=== PATIENT | male | born 1980 | race Caucasian/White ===

== ENCOUNTER 2016-11-05 17:39 | Emergency (ER) | payer OTHER ==
[~2016-11-05] VITALS: Ht 180.3 cm; Wt 108.9 kg
[2016-11-05] MEDS ORDERED: METHADONE 10MG10 MG PO (17:53)
--- OUTSIDE RECORDS SUMMARY | 2016-11-05 18:00 | External Medical Summary Rpt ---
Demographics Preferred Language Serbian Marital Status Unknown Rastafari Affiliation Unknown Race Unknown Ethnic Group Unknown Author Author , VIVIAN AVILA Address Unknown Phone Immunization Unable to retrieve immunization data due to connection failure with Immunization Registry. Please try again later.
--- OUTSIDE RECORDS SUMMARY | 2016-11-05 18:00 | External Medical Summary Rpt ---
Author Author MARGARITA Oconnell, MARGARITA Oconnell Organization [employer] Address Unknown Phone Unavailable
--- OUTSIDE RECORDS SUMMARY | 2016-11-05 18:00 | External Medical Summary Rpt ---
Author Author [employer] Organization [employer] Address Unknown Phone Unavailable Purpose Continuity of Care Document - through 2016
--- OUTSIDE RECORDS SUMMARY | 2016-11-05 18:00 | External Medical Summary Rpt ---
Author Author VIVIAN Address Unknown Phone [email or web address] Purpose Continuity of Care Document - through 2016
--- OUTSIDE RECORDS SUMMARY | 2016-11-05 18:00 | External Medical Summary Rpt ---
Demographics Preferred Language Indonesian Marital Status Unknown Lutheran Affiliation Unknown Race Unknown Ethnic Group Unknown Author Author , VIVIAN AVILA Address Unknown Phone Immunization Unable to retrieve immunization data due to connection failure with Immunization Registry. Please try again later.
--- OUTSIDE RECORDS SUMMARY | 2016-11-05 18:00 | External Medical Summary Rpt ---
Author Author VIVIAN Address Unknown Phone Purpose Continuity of Care Document - through 2016
--- NOTE | 2016-11-05 18:28 | Urgent Treatment Center Report ---
History of Present Issue Date/Time Seen by Provider 11/05/161820 Visit Reason Pt arrived:Walked Presenting Problem:ABDOMINAL PAIN THAT STARTED ON THURSDAY, PT STATES HIS STOOL HAS GOTTEN DARKER OF THE LAST 2 DAYS, WITH 1 EPISODE OF VOMITING. Location if Accident: Onset of symptoms date/time:/ or onset unknown for:MEDICAL HX UNKNOWN Have you (or family members/close friends) recently traveled outside the [facility]? N If Yes, where/when: Have you had exposure to infectious disease within the past month? TB? Other? Specify: Here w/ significant other c/o abdominal pain, black diarrhea and vomiting. Started w/ diarrhea Thursday evening. Dark black, "not brown, this is black". Blood noticed at times w/ wiping. 6-10 episodes of diarrhea since onset accompanied with intermittent stabbing pains across lower abdomen. Worse before BMs, slightly improved after BM. BMs worse if pt eats/drinks. Slightly decreased appetite but eating less "because it goes right through me". Hasn't taken or tried anything for symptoms. Denies pepto or anything similiar. Vomited today. Once. Partially digested food. No blood of coffee ground appearance. Denies fevers, aches, chills. Hx of constipation due to chronic methadone use. Typical BM pattern once weekly. Source patient, family Exam Limitations no limitations ALLERGIES Coded Allergies: No Known Allergies (11/05/16) Home Medications Reported Medications Methadone Hcl (Methadone) 55 MG PO DAILY History Medical History General CAD? No Angina: No [place]: No Hypertension? No Hyperlipidemia? No CHF? No DVT? No PE? No COPD? No Asthma? No Anemia? No GERD? No Gastric ulcers? No GI Bleed? No Hernia? No Thyroid Problems? No Hypothyroidism? No CVA? No Seizures? No Diabetes? No Renal Insuffiency? No UTI? No Stones? No BPH? No GB Disease: No Nephritic Syndrome? No Asplenia? No Hepatitis? No Sickle Cell Disease? No Arthritis? No Migraines? No Cataracts? No Glaucoma? No MRSA? No HIV? No TB? No Anxiety? No Depression? No Cancer? No Site: N More? Yes Additional hx: HEP C Immunization HX DT/Tetanus 1-4 Years Ago Surgical Hx Previous Surgery?Y GALLBLADDER Social History Smoking Hx Smoker: Current Every Day Smoker Tobacco: Yes Type N/A Packs/day N/A Alcohol Alcohol: No Review of Systems All Other Systems Reviewed and Negative Constitutional see HPI Respiratory denies shortness of breath Cardiovascular denies edema, denies palpitations Gastrointestinal see HPI Genitourinary denies: no symptoms reported. Skin denies change in color Physical Exam Vital Signs Vital Signs Date Time Temp Pulse Resp B/P Pulse O2 O2 Flow FiO2 Ox Delivery Rate 11/05 1749 98.1 102 20 114/87 97 General Appearance normal appearance, no apparent distress Ear, Nose, Throat normal pharynx Respiratory Status No: respiratory distress. Lung Sounds anterior: lungs clear. posterior: lungs clear. bilateral: lungs clear. Cardiovascular no peripheral edema, no murmur, tachycardia Gastrointestinal soft, no organomegaly, no pulsatile mass, abnormal bowel sounds (distant), no guarding, no rebound, tenderness (mild RLQ) Neurologic alert, oriented x 3 Mental status normal mood/affect Skin normal color, warm/dry Lymphatic no adenopathy Medical Decision Making LABS/Meds/Orders Pt receiving controlled substance in ED? No Departure Departure Time of Disposition 183 Disposition Still a Patient Clinical Impression Primary Impression: Black stools Secondary Impressions: Abdominal pain Qualifiers: Abdominal location: right lower quadrant Qualified Code: R10.31 - Right lower quadrant pain Condition STABLE Additional Instructions Discussed symptoms and [facility] guidelines. Pt is agreeable to transfer to ER for further evaluation. Report called to Miguel Angel at [phone]
--- NOTE | 2016-11-05 19:54 | Emergency Room Report ---
History of Present Illness Time Seen by 183Sotero Presenting Problem in Triage Pt arrived:Walked Presenting Problem:ABD PAIN, DIARRHEA BEGAN THURSDAY Onset of symptoms date/time:/ or onset unknown for:MEDICAL HX UNKNOWN Treatment Prior to Arrival: [employer]CH[employer]ICIAN Provided by: Sepsis Risk Assessment: Temp: 98.1 B/P: 114/87 MAP: 96 Pulse: 102 Resp: 20 Recent fever? N Clinical Suspician of Infection? N Mental Status: 1 - Regular (Normal Baseline) Sepsis Risk:Possible Sepsis Risk Have you (or family members/close friends) recently traveled outside the [place]? N If Yes, where/when: Have you had exposure to infectious disease within the past month? N TB? Other? Specify: Source patient, RN notes reviewed, family, RN/MD Exam Limitations no limitations Comment This is a 36-year-old male patient presented emergency room with abdominal discomfort, diarrhea, for the past 3 days. Patient's states patient's to have been dark, reason why he presented to the [facility] for examination. Patient denies any recent travel or exposure to sick contacts. Patient has been the methadone clinic for the past 3 years, due to previous drug abuse. ALLERGIES Coded Allergies: No Known Allergies (11/05/16) Home Medications Reported Medications Methadone Hcl (Methadone) 55 MG PO DAILY (Dorothy DAVILA,Tyler Hamilton) History Medical History General CAD? No Angina: No [place]: No Hypertension? No Hyperlipidemia? No CHF? No DVT? No PE? No COPD? No Asthma? No Anemia? No GERD? No Gastric ulcers? No GI Bleed? No Hernia? No Thyroid Problems? No Hypothyroidism? No CVA? No Seizures? No Diabetes? No Renal Insuffiency? No End Stage Renal Disease? No UTI? No Stones? No BPH? No GB Disease: No Nephritic Syndrome? No Asplenia? No Hepatitis? No Sickle Cell Disease? No Arthritis? No Migraines? No Cataracts? No Glaucoma? No MRSA? No HIV? No TB? No Anxiety? No Depression? No Cancer? No Site: N More? Yes Additional hx: HEP C Immunization Hx DT/Tetanus 1-4 Years Ago Surgical Hx Previous Surgery?Y GALLBLADDER Social History Smoking Hx Smoker: Former Smoker Tobacco: No Type Cigarettes Packs/day N/A Alcohol Alcohol: No (Tyler De La Cruz MD) Review of Systems All Other Systems Reviewed and Negative Gastrointestinal abdominal pain, diarrhea, denies nausea, denies vomiting (Tyler De La Cruz MD) Physical Exam Vital Signs Vital Signs Date Time Temp Pulse Resp B/P Pulse O2 O2 Flow FiO2 Ox Delivery Rate 11/06 2027 74 16 124/81 97 11/05 185 98.1 102 20 114/87 98 11/06 1851 98.1 102 20 114/87 97 11/05 1749 98.1 102 20 114/87 97 General Appearance normal appearance, WD/WN, no apparent distress Respiratory Status Yes: trachea midline, chest symmetrical, non tender chest. No: respiratory distress. Lung Sounds bilateral: normal breath sounds, lungs clear. Cardiovascular normal exam, regular rate/rhythm, no peripheral edema, no gallop, no JVD, no murmur, no rub, normal peripheral pulses Gastrointestinal normal bowel sounds, normal exam, non tender, soft, no organomegaly Extremities non-tender, normal range of motion, normal inspection Neurologic alert, purchase order checker II-XII nml as tested, normal exam, oriented x 3 Skin intact, normal color, warm/dry (Dorothy DAVILA,Tyler Hamilton) Medical Decision Making LABS/Meds/Orders Pt receiving controlled substance in ED? No Comment Patient signed out to Dr. Charity quintanilla at 8:00pm, pending labs. Results/Orders Laboratory Tests 11/05/162009: Opiates Screen NEGATIVE, Urine Methadone Screen POSITIVE H, Barbiturates NEGATIVE, Phencyclidine Screen NEGATIVE, Amphetamines Screen NEGATIVE, Benzodiazepines Screen NEGATIVE, Cocaine Screen NEGATIVE, Marijuana (THC) Screen NEGATIVE, Urine Color YELLOW, Urine Appearance CLEAR, Urine pH 6.5, Ur Specific [place] 1.025, Urine Protein NEGATIVE, Urine Ketones TRACE H, Urine Blood TRACE -LYSED, Urine Nitrate NEGATIVE, Urine Bilirubin NEGATIVE, Urine Urobilinogen 0.2 , Ur Leukocyte Esterase NEGATIVE, Urine WBC 3-5, Urine Bacteria 1+, Urine Mucus 2+, Urine Glucose NEGATIVE 11/05/161951: Sodium 138, Potassium 4.3, Chloride 101, Carbon Dioxide 29, BUN 10, Creatinine 1.1, Estimated Creat Clear 140, Estimated GFR (MDRD) 75, Glucose 124 H, Calcium 9.1, Total Bilirubin 0.4, AST 26, ALT 35, Alkaline Phosphatase 126 H, Total Protein 8.2, Albumin 3.8, Globulin 4.4 H, Albumin/Globulin Ratio 0.9 L, Amylase 41, Lipase 105, WBC 6.3, RBC 5.49, Hgb 14.9, Hct 44.9, MCV 81.9 L, RDW 13.4, Plt Count 239, MPV 6.9 L, Gran % 71.5, Gran # 4.5, Lymphocytes % 21.2, Monocytes % 4.0, Eosinophils % 2.9, Basophils % 0.4, Lymphocytes # 1.3, Monocytes # 0.3, Eosinophils # 0.2, Basophils # 0.0, PUBS MCHC 33.2, MCH 27.2 11/05/16 0600: Stool Occult Blood NEGATIVE Current Medication Orders Sig/Mekhi Start time Last Medication Dose Route Stop Time Status Admin Sodium Chloride 1,000 ML .Q1H1M 11/06 1999 DC IV 11/05 2099 Sodium Chloride 10 ML PRN PRN 11/06 1999 AC IV 11/06 1953 Sodium Chloride 10 ML PRN PRN 11/05 1929 AC IV 11/06 1928 Orders Procedure Date/time Status DIET-NOTHING BY MOUTH 11/06 B Active STOOL OCCULT BLOOD 11/05 2013 Complete DRUG ABUSE SCREEN (10) 11/05 1954 Complete DIARRHEA PANEL, PCR 11/[address] ABD & PELVIS W/O CONTRAST 11/[address] ABD/PELVIS REQ 11/05 1928 Complete IV SALINE LOCK 11/05 1928 Active URINALYSIS/COMPLETE 11/05 1928 Complete LIPASE 11/05 1928 Complete CBC WITH AUTO DIFF 11/05 1928 Complete CHEM 12 PROFILE 11/05 1928 Complete AMYLASE 11/05 1928 Complete Departure Departure Time of Disposition 1951 Disposition DC Home or Self Care(routine) Clinical Impression Primary Impression: Abdominal pain Secondary Impressions: Diarrhea Qualifiers: Diarrhea type: unspecified type Qualified Code: R19.7 - Diarrhea, unspecified Condition STABLE ED Critical Care Critical Care No (Tyler De La Cruz MD) Departure Patient Instructions DI for Vomiting -- Adult Additional Instructions Discussed symptoms and [facility] guidelines. Pt is agreeable to transfer to ER for further evaluation. Report called to Miguel Angel (Davidson Josue MD) at 4 at [phone]
[2016-11-05 19:55] LABS: HEMOGLOBIN 14.9 g/dL (14.1-18.0); LYMPH # 1.3 K/mm3 (0.7-4.5); LYMPH % 21.2 % (10-50)
[2016-11-05 20:19] LABS: URINE BILIRUBIN - DIPSTICK NEGATIVE (NEG); URINE BLOOD TRACE-LYSED (NEG)
[2016-11-05 20:28] LABS: AMPHETAMINES/METAMPHETAMINES NEGATIVE ng/mL (<1000)
[2016-11-05 21:17] LABS: STOOL OCCULT BLOOD NEGATIVE (NEG)
[2016-11-05 21:27] VITALS: BP 123/774
--- NOTE | 2016-11-05 22:44 | RADIOLOGY REPORT PS360 ---
CT ABD PELVIS W/O CONTRAST CLINICAL HISTORY: Abdominal pain with dark tarry stool. TECHNIQUE: Axial images obtained with sagittal and coronal reformatted images performed on CT workstation under radiologist's supervision.. COMPARISON: No prior studies available in PACS. FINDINGS: No previous studies available for comparison Lung bases: No active disease heart normal size. Normal pleural-parenchymal scarring at the posterior right lung base ABDOMEN: Lack of IV contrast decreases overall sensitivity for this study. Liver: No masses or biliary dilatation. Gallbladder: Has been surgically removed Pancreas: No masses or peripancreatic fluid collections. Spleen: Unremarkable. Adrenals: Unremarkable Kidneys/ureters: No masses. No renal calculi. No hydronephrosis. No perinephric fluid collections. No ureteral dilatation or obvious ureteral calculi. PELVIS: Reproductive: Bladder: Nondistended. No obvious masses. Appendix: Unremarkable. No distention or periappendiceal phlegmonous change. ABDOMEN & PELVIS: Stomach.: Unremarkable Small bowel unremarkable no bowel dilatation or obstruction. Terminal ileum appears normal Appendix is normal. Large bowel VRC question some mild wall thickening the transverse colon but I find this unimpressive most likely reflects lack of distention. I would only question some possible mild wall thickening at the superior rectum but this also may reflect merely lack of distention. The patient does have heme-positive stools and consider colonoscopy. Peritoneum: No abnormal fluid collections. No obvious inflammatory changes. Lymph nodes: No enlarged lymph nodes apparent. Vasculature: No evidence of abdominal aortic aneurysm. No retroperitoneal hemorrhage evident. Bones: .. No lytic or blastic changes. No obvious fractures. Developing hypertrophic facets throughout the lumbar spine most evident L5/S1 and L4/5 L3/4 and L2/3 bilaterally IMPRESSION: 1. No acute findings in the abdomen or pelvis. 2. Large bowel.-Question areas of of wall thickening which may merely be due to lack of distention, as noted below: ..Cannot be some mild wall thickening at the superior rectum, on my review. . VRC question mild wall thickening at the transverse colon which I strongly favor is merely due to lack of distention ... However if the patient does have heme-positive stools, further evaluation bowel warranted. 3. Cholecystectomy
== END 2016-11-05 21:28 | disposition home or self-care (01) ==
LOC: UTC 17:39 → ER 17:46 → UTC 17:46 → ER 21:28
PROVIDERS: Emergency Medicine
DX: R10.9 Unspecified abdominal pain (principal); R19.7 Diarrhea, unspecified; Z92.29 Personal history of other drug therapy
CPT/HCPCS: G0328